=== PATIENT | female | born 1970 | race Caucasian/White ===

== ENCOUNTER 2024-04-13 15:04 | Outpatient (CLI) | payer MEDICAID | END 2024-04-13 23:59 | disposition home or self-care (01) | LOC: MRI 15:04 | PROVIDERS: ATTEND Physician Assistant Surgical | DX: M17.11 Unilateral primary osteoarthritis, right knee (principal); M71.21 Synovial cyst of popliteal space [Baker], right knee; M25.461 Effusion, right knee; M25.561 Pain in right knee | CPT/HCPCS: 73721 ==